=== PATIENT | male | born 1950 | race Caucasian/White ===

== ENCOUNTER 2017-05-07 05:13 | Day surgery (SDC) | payer OTHER, MEDICARE ==
[~2017-05-07] VITALS: Ht 180.3 cm; Wt 79.4 kg
--- NOTE | ~2017-05-07 | EKG ---
[address] [address] ELECTROCARDIOGRAM REPORT Name: YOBANI TURCIOSY CHUY Room #: DEP [facility]#: [id number] Admission: 05/07/17 Attend Phys: Lane Chamorro Discharge: 05/07/17 Date of : 46 Report #: [id number] THIS REPORT FOR: //name// [facility] Test Date: 2017-05-07 Test Time: 09:04:28 Pat Name: MYRON TURCIOS Department: Room: 150 4 Gender: M Community Support Associate: BIBI : 1950 Requested By: Lane Christie Order Number: [id number] MD: Ivan Flynn Measurements Intervals [place] Rate: 63 P: 2 NJ: 224 QRS: 32 QRSD: 102 T: 10 QT: 439 QTc: 450 Interpretive Statements Sinus rhythm Prolonged [place] interval Compared to ECG 03/01/2011 14:25:12 No significant changes Electronically Signed On 05-07-2017 16:47:46 CDT by Ivan Flynn [email or web address] <ELECTRONICALLY SIGNED> By: Ivan Flynn MD 05/07/17 0876 0904 0904 Ivan Flynn MD /PINEDA
--- NOTE | ~2017-05-07 | S ---
[facility] [place] [address] [address] [place] [address] SURGICAL PATH RPT PROCEDURE Name: MYRON TURCIOS Room #: DEP [facility].R.#: [id number] Admission: 05/07/17 Date of : 46 Discharge: 05/07/17 Report #: [id number] Path Case #: [id number] PATHOLOGY REPORT COLLECTION DATE: 05/07/2017 RECEIVED DATE: 05/07/2017 SUBMITTING PHYS: Dr. Lane Christie, DO OTHER PHYS: Dr. Saurav Maddox SPECIMEN(S) RECEIVED: A.Back cyst * * * * * * * * * * * * FINAL DIAGNOSIS: "Back cyst", excision: - Skin and subcutaneous tissue with epidermal inclusion cyst. (CLW:shelley; 05/09/2017) PATHOLOGIST: Ana Frazier M.D. REPORT ELECTRONICALLY SIGNED BY: Ana Frazier M.D. DATE/TIME: 05/09/2017 14:29 * * * * * * * * * * * * GROSS PATHOLOGY: The specimen is received in formalin, labeled "Myron Turcios, epidermal back cyst" is a cordero-yellow to pink-red, rubbery cystic nodule partially surface by cordero-brown skin measuring 3.3 x 1.3 x 1.2 cm. The cut surface is remarkable for a unilocular cyst measuring 1.2 cm in greatest dimension. The cyst contains ewing-white friable material. No papillary excrescences or additional abnormalities are noted. Batching Operator sections are submitted in cassette A1. (JWP; 05/08/2017) CLINICAL HISTORY: Sebaceous cyst trunk INITIAL CPT CODE(S): A; 67807 Professional services performed by [facility] at [facility] [address], [place] [address] Technical services performed by [facility] at [address] [place] [address]. [facility] [address] [place] [address] SURGICAL PATH RPT PROCEDURE Name: MYRON TURCIOS CHUY Room #: DEP [facility].#: [id number] Admission: 05/07/17 Date of : 46 Discharge: 05/07/17 Report #: [id number] Path Case #: [id number] [facility] [place] [address] PHONE: [phone] DIRECTOR: Lauro Masters M.D. * * * END OF REPORT * * *
[~2017-05-07 05:13] MED LIST: CRESTOR10 MG PO; CRESTOR40 MG PO; LEVOTHYROXINE 0.1 MG PO; NORCO 7.5-3251 EACH PO; SYNTHROID25 MCG PO; WELCHOL 625 MG625 MG PO; XALATAN2.5 M1 OPHTHALMIC
[2017-05-07 10:08] VITALS: BP 110/70
[2017-05-07 11:01] VITALS: BP 110/70
== END 2017-05-07 11:05 | disposition home or self-care (01) ==
LOC: OR 05:13 → TBA 05:13 → OR 10:00
DX: L72.3 Sebaceous cyst (principal); J45.909 Unspecified asthma, uncomplicated
CPT/HCPCS: 50010; 50101; 50386; 50403; 56526

== ENCOUNTER → 2018-03-07 | Outpatient (CLI) | payer OTHER, MEDICARE ==
[~2018-03-07] VITALS: Ht 177.8 cm; Wt 81.6 kg
[~2018-03-07] MED LIST changes: +ASPIR 8181 MG PO; +CENTRUM SILVER1 EAC2 PO; +CO Q-10100 MG PO; +LEVOTHYROXINE100 MCG PO; +ZETIA10 MG PO
--- NOTE | ~2018-03-07 | P ---
[facility] [place] [address] [address] PROCEDURE REPORT Name: MYRON TURCIOS Room #: REG [facility]#: [id number] Admission: 03/07/18 Attend Phys: León Mcdaniel MD Discharge: Date of : 46 Report #: [id number] THIS REPORT FOR: //name// CC: FAM unknown León Maddox MD BRIEF HISTORY: The patient is a 67-year-old male for a screening colonoscopy. His last colonoscopy was 13 years ago. He has a few details about that colonoscopy. He is asymptomatic at this time. PREOPERATIVE DIAGNOSIS: Screening colonoscopy. POSTOPERATIVE DIAGNOSES: 1. Multiple colonic polyps. 2. Moderate diverticulosis coli, sigmoid colon. MEDICATIONS: Deep sedation with propofol per anesthesia. SPECIMENS: 1. Diminutive polyp, proximal ascending colon times 3. 2. Polyp, hepatic flexure. 3. Polyp 60 cm. 4. Polyps times 2 at 40 cm. ESTIMATED BLOOD LOSS: 3 mL. PROCEDURE: Colonoscopy to cecum and terminal ileum with biopsy. FINDINGS: Prior to propofol sedation, the procedure of colonoscopy discussed with the patient as well as potential risks, benefits and complications. He indicates he understands and desires to proceed. With the patient in left lateral decubitus position, digital examination was completed, which revealed no abnormalities. Subsequently, the [employer] video colonoscope was introduced in the rectum, advanced under direct vision to the cecum. Done with minimal difficulty. The cecum was identified by the ileocecal valve and the appendiceal orifice. I was able to visualize the distal segment of terminal ileum, which was inspected and noted to be unremarkable. At that point, the scope was slowly withdrawn and careful circumferential views were obtained including retroflexing the scope in the ascending colon. As we withdrew the scope, multiple diminutive polyps were identified. There were 3 in the proximal ascending colon and these were removed with biopsy forceps. The scope was withdrawn and no additional abnormalities were noted until the hepatic flexure was reached at which point another diminutive polyp was seen, identified, and removed with the biopsy forceps. As we withdrew the scope, no [facility] [address] [place] [address] PROCEDURE REPORT Name: MYRON TURCIOS Room #: REG [facility].#: [id number] Admission: 03/07/18 Attend Phys: León Mcdaniel MD Discharge: Date of : 46 Report #: [id number] additional abnormalities were noted until the left colon was reached and at 60 cm, another diminutive polyp was seen and removed by biopsy. At 40 cm, 2 diminutive polyps were seen and removed by biopsy as well. In addition, in the sigmoid colon, there was noted to be moderately severe diverticular disease without endoscopic evidence of diverticulitis. The scope was further withdrawn and no additional abnormalities were seen. The scope was withdrawn in the rectum. Upon retroflexion, no abnormalities were seen. Scope was withdrawn. The patient tolerated the procedure well. CONDITION OF THE PATIENT UPON DISCHARGE: Following procedure, the patient drowsy, arousable and conversant and will be discharged to home when fully ambulatory. INSTRUCTIONS TO THE PATIENT AND FAMILY AT THE TIME OF DISCHARGE: The patient for screening colonoscopy. A total of 7 polyps were identified and removed. These appeared to be diminutive adenomas. We will follow up on the path, but at this point in time, I would suggest a followup colon exam in 3 years. He will return to care of Dr. Saurav Maddox and return to see me as needed. Last colonoscopy was 13 years ago. Withdrawal time from the cecum including removal of polyps was 24 minutes and 6 seconds. <ELECTRONICALLY SIGNED> By: León Mcdaniel MD 03/08/18 1126 0821 1055 León Mcdaniel MD /nt
--- NOTE | ~2018-03-07 | PATH ---
[facility] [address] [address] PATHOLOGY RPT PROCEDURE Name: MYRON TURCIOS Room #: REG [facility]..#: [id number] Admission: 03/07/18 Date of : 46 Discharge: Report #: [id number] Path Case #: [id number] [facility] Accession Number: [id number] . 01 Material submitted: . PART A: BX OF POLYP PROXIMAL ASCENDING COLON X 3 PART B: BX OF POLYP AT HEPATIC FLEXURE PART C: BX OF POLYP AT 60 CM PART D: BX OF POLYP AT 40 CM X 2 . 01 Clinical history: . HISTORY OF POLYPS, DIVERTICULOSIS . 02 Diagnosis: A. Polyp x 2, proximal ascending, endoscopic biopsy: - Tubular adenoma identified in multiple fragments. - Negative for high grade dysplasia. . B. Polyp, at hepatic flexure, endoscopic biopsy: - Tubular adenoma. - Negative for high grade dysplasia. . C. Polyp, at 60 cm, endoscopic biopsy: - Tubular adenoma. - Negative for high grade dysplasia. . D. Polyp x 2, at 40 cm, endoscopic biopsy: - Two fragments showing tubular adenoma without high grade dysplasia. - One fragment showing hyperplastic polyp without dysplasia. - Remainder fragments showing no diagnostic abnormalities. (IUV:shelley; 03/08/2018) QMS/03/08/2018 . 02 Electronically signed: . Mary Isabel MD, Pathologist NPI- [id number] . 01 Gross description: . A. Received in formalin labeled "Myron Turcios, biopsy of polyp proximal ascending colon X3" and consists of several soft cordero tissue fragments, 0.4 x 0.3 x 0.2 cm and aggregate. They are entirely submitted as A1. . B. Received in formalin labeled "Myron Delgadilloun, biopsy of polyp at hepatic flexure" and consists of a 0.3 cm soft cordero tissue fragment which is entirely submitted as B1. . [address] [address] PATHOLOGY RPT PROCEDURE Name: MYRON TURCIOS Room #: REG [facility].#: [id number] Admission: 03/07/18 Date of : 46 Discharge: Report #: [id number] Path Case #: [id number] C. Received in formalin labeled "Myron Turcios, polyp at 60 cm" and consists of a 0.2 cm soft pink tissue fragment which is entirely submitted as C1. . D. Received in formalin labeled "Myron Donohuehbun, polyp at 40 cm" and consists of 5 soft cordero tissue fragments each averaging 0.3 cm. They are entirely submitted as D1. (LUKASZ; 03/07/2018) JBR/JBR . 02 Microscopic: . . . 02 Pathologist provided ICD-10: D12.2, D12.3, D12.6, K63.5 . 02 CPT . 282173, 587836, 890028, 432523 Performed at: [address], [place] [id number] MD Rajesh Jimenez MD Phone: [phone] Performed at: [address] [id number] MD Mary Isabel MD Phone: [phone]
== END | disposition home or self-care (01) ==
LOC: GI 06:24
DX: Z12.11 Encounter for screening for malignant neoplasm of colon (principal); D12.2 Benign neoplasm of ascending colon; D12.3 Benign neoplasm of transverse colon; Z86.010 Personal history of colon polyps; D12.4 Benign neoplasm of descending colon; D12.5 Benign neoplasm of sigmoid colon; K57.30 Diverticulosis of large intestine without perforation or abscess without bleeding; E78.5 Hyperlipidemia, unspecified; J45.990 Exercise induced bronchospasm; Z98.41 Cataract extraction status, right eye; E03.9 Hypothyroidism, unspecified; Z98.890 Other specified postprocedural states
CPT/HCPCS: 62110; 62900

== ENCOUNTER → 2019-10-31 | Outpatient (CLI) | payer OTHER, MEDICARE | LOC: MRI 10:24 | DX: M47.816 Spondylosis without myelopathy or radiculopathy, lumbar region (principal); M48.061 Spinal stenosis, lumbar region without neurogenic claudication; M47.817 Spondylosis without myelopathy or radiculopathy, lumbosacral region; M25.78 Osteophyte, vertebrae; M51.26 Other intervertebral disc displacement, lumbar region ==